=== PATIENT | male | born 1930 | race Caucasian/White ===

== ENCOUNTER → 2016-06-22 | Outpatient (CLI) | payer MEDICARE, BC | LOC: OD 09:11 | PROVIDERS: ATTEND Allergy & Immunology | DX: J32.9 Chronic sinusitis, unspecified (principal) | CPT/HCPCS: 70220 ==

== ENCOUNTER → 2016-10-18 | Outpatient (CLI) | payer MEDICARE, BC ==
--- NOTE | 2016-10-19 09:40 | RADIOLOGY REPORT (SQ) ---
EXAM DESCRIPTION: MRI HEAD COMBO COMPLETED DATE/TIME: 10/18/2016 8:36 pm REASON FOR STUDY: VERTIGO (attn to IAC's) R42 DIZZINESS AND GIDDINESS COMPARISON: None. TECHNIQUE: Multiplanar imaging includes noncontrasted T1, T2, FLAIR, Diffusion with ADC map and post gadolinium contrast T1 sequences. Additional thin sections through the internal auditory canals pre and postcontrast. Images stored on PACS. CONTRAST TYPE AND DOSE: 15 mL Multihance. RENAL FUNCTION: GFR > 60. LIMITATIONS: Patient motion. FINDINGS: ANATOMY: No anomalies. Normal vascular flow voids. Pituitary fossa normal. CSF SPACES: Atrophy-induced prominence of CSF spaces and ventricles. CEREBRUM: High-signal intensity lesions scattered throughout the white matter on FLAIR imaging with d istribution suggesting chronic micro-vascular ischemic change. No evidence of hemorrhage, mass, extra axial fluid collection or acute ischemic change. No enhancing lesions. POSTERIOR FOSSA: No signal alteration. No hemorrhage. No edema, masses, or mass effect. Internal seun tory canals, cerebello-pontine angles, mastoids normal. No enhancing lesions. ORBITS: No masses. Globes normal. PARANASAL SINUSES: No fluid levels. Mucosa normal. DIFFUSION: Normal. No evidence of recent infarct. OTHER: No other significant finding. IMPRESSION: 1. Normal IAC's. 2. No acute abnormality in the brain. TECHNICAL DOCUMENTATION: JOB ID: [id number]- All Rights Reserved
== END ==
LOC: RAD 19:20
PROVIDERS: ATTEND Specialist
DX: R42 Dizziness and giddiness (principal)
CPT/HCPCS: 82565; 70553; A9577

== ENCOUNTER → 2017-01-04 | Outpatient (CLI) | payer MEDICARE, BC ==
--- NOTE | 2017-01-04 10:45 | RADIOLOGY REPORT (SQ) ---
EXAM DESCRIPTION: CT ORBIT/SELLA WITHOUT COMPLETED DATE/TIME: 01/04/2017 7:56 am REASON FOR STUDY: MASTOIDITIS (H70.90) H70.90 UNSPECIFIED MASTOIDITIS, UNSPECIFIED EAR COMPARISON: Paranasal sinus films 06/22/2016 MRI brain 10/18/2016 TECHNIQUE: Noncontrasted thin section axial images through the temporal bones and skull base were ob tained and reviewed at bone windows and bone algorithm with coronal and sagittal reconstructions. All CT scanners at this facility use dose modulation, iterative reconstruction, and/or weight based d osing when appropriate to reduce radiation dose to as low as reasonably achievable (ALARA). [facility]: Dose Right [facility]: CareDose [facility]: Dose Right [facility]: Teradose 4D [facility]: [employer] RADIATION DOSE: Up-to-date CT equipment and radiation dose reduction techniques were employed. CTDIv ol: 60.6 mGy. DLP: 606 mGy-cm. mGy. LIMITATIONS: None. FINDINGS: RIGHT SIDE: EXTERNAL AUDITORY CANAL: Widely patent. TYMPANIC MEMBRANE: No masses, thickening or medial retraction. OSSICLES AND MIDDLE EAR CAVITY: Normal ossicles. No middle ear masses or fluid. INNER EAR STRUCTURES: Normal vestibule and cochlea. Normal aqueducts. INTERNAL AUDITORY CANAL: Normal bony canal without narrowing or widening. No calcified or ossified m asses. TEMPOROMANDIBULAR JOINT: Normal. MASTOID AIR CELLS: Clear. LEFT SIDE: EXTERNAL AUDITORY CANAL: Widely patent. TYMPANIC MEMBRANE: No masses, thickening or medial retraction. OSSICLES AND MIDDLE EAR CAVITY: Normal ossicles. No middle ear masses or fluid. INNER EAR STRUCTURES: Normal vestibule and cochlea. Normal aqueducts. INTERNAL AUDITORY CANAL: Normal bony canal without narrowing or widening. No calcified or ossified m asses. TEMPOROMANDIBULAR JOINT: Normal. MASTOID AIR CELLS: Clear. CENTRAL SKULL BASE: Normal foramina. No lytic or blastic lesions. INFERIOR BRAIN: Limited view. No acute findings. LIMITED VIEW OF PARANASAL SINUSES IN THE FIELD OF VIEW: Normal. Mild leftward nasal septal deviation . IMPRESSION: UNREMARKABLE NONCONTRASTED TEMPORAL BONE CT. TECHNICAL DOCUMENTATION: JOB ID: [id number] Quality ID # [id number]: Final reports with documentation of one or more dose reduction techniques (e.g., Au tomated exposure control, adjustment of the mA and/or kV according to patient size, use of iterative reconstruction technique) 2010 [employer]- All Rights Reserved
== END ==
LOC: RAD 07:26
PROVIDERS: ATTEND Internal Medicine
DX: H70.90 Unspecified mastoiditis, unspecified ear (principal)
CPT/HCPCS: 70480

== ENCOUNTER 2017-02-05 09:18 | Emergency (ER) | payer MEDICARE, BC ==
--- NOTE | 2017-02-05 09:58 | ER Document Report ---
ED Medical Screen (RME) - General Chief Complaint: High Blood Pressure Stated Complaint: ABNORMAL LABS Time Seen by Provider: 02/05/17 09:54 Mode of Arrival: Wheelchair Information source: Patient Notes: 86-year-old male who has had vertigo issues presents with complaints of dizziness as well as left mastoid tenderness Patient has been seen by his PCP with similar complaints Patient notes his blood pressure was elevated when checked this morning I have greeted and performed a rapid initial assessment of this patient. A comprehensive ED assessment and evaluation of the patient, analysis of test results and completion of the medical decision making process will be conducted by additional ED providers. PHYSICAL EXAMINATION: GENERAL: Well-appearing, well-nourished and in no acute distress. HEAD: Atraumatic, normocephalic. EYES: Pupils equal round extraocular movements intact, conjunctiva are normal. ENT: Nares patent, mastoid tenderness on the left NECK: Normal range of motion LUNGS: No respiratory distress Musculoskeletal: Normal range of motion NEUROLOGICAL: Normal speech, normal gait. PSYCH: Normal mood, normal affect. SKIN: Warm, Dry, normal turgor, no rashes or lesions noted. TRAVEL OUTSIDE OF THE [place] IN LAST 30 DAYS: No - Related Data Allergies/Adverse Reactions: No Known Allergies Allergy (Verified 02/05/17 09:27) Past Medical History - Social History Chew tobacco use (# tins/day): No Frequency of alcohol use: None Drug Abuse: None - Past Medical History Cardiac Medical History: Reports: Hx Hypertension Pulmonary Medical History: Reports: Hx Asthma, Hx Pneumonia Renal/ Medical History: Denies: Hx Peritoneal Dialysis Physical Exam - Vital signs Vitals: Temp Pulse Resp BP Pulse Ox 97.6 F 57 L 18 167/83 H 98 02/05/17 09:28 02/05/17 09:28 02/05/17 09:28 02/05/17 09:28 02/05/17 09:28 Course - Vital Signs Vital signs: Temp Pulse Resp BP Pulse Ox 97.6 F 57 L 18 167/83 H 98 02/05/17 09:28 02/05/17 09:28 02/05/17 09:28 02/05/17 09:28 02/05/17 09:28
--- NOTE | 2017-02-05 10:37 | ER Document Report ---
ED Dizziness/Weakness - General Chief Complaint: High Blood Pressure Stated Complaint: ABNORMAL LABS Time Seen by Provider: 02/05/17 09:54 Mode of Arrival: Wheelchair Information source: Patient TRAVEL OUTSIDE OF THE [place] IN LAST 30 DAYS: No - HPI Patient complains to provider of: Dizziness Onset: This morning Onset/Duration: Waxing and waning Quality of pain: Achy Severity: Moderate Pain Level: 2 Associated symptoms: Dizzy, Ear pain Notes: Patient is an 86-year-old male with a history of chronic vertigo for 40 years, and a left ear pain that has been going on for at least the past 6 months, who presents today complaining of elevated blood pressure measuring 165/106 this morning, prior to taking his blood pressure medicine for the morning, he reports slightly worse dizziness than usual and worse left ear pain than usual, states he has been seen by his primary care provider, ENT and neurology and still does not have an official reason for his symptoms and his symptoms continue to be bothersome, he denies any fevers, no cough, cold or congestion, he does have a mild frontal headache, no throat pain, no chest pain or shortness of breath - Related Data Allergies/Adverse Reactions: No Known Allergies Allergy (Verified 02/05/17 09:27) Home Medications: Current Home Medications Aspirin [Aspirin EC] 81 mg PO DAILY 02/05/17 [History] Lisinopril [Prinivil 40 mg Tablet] 40 mg PO DAILY 02/05/17 [History] Metoprolol Tartrate [Lopressor 100 mg Tablet] 100 mg PO Q12 02/05/17 [History] Past Medical History - General Information source: Patient - Social History Smoking Status: Never Smoker Chew tobacco use (# tins/day): No Frequency of alcohol use: None Drug Abuse: None Family History: Reviewed & Not Pertinent - Past Medical History Cardiac Medical History: Reports: Hx Hypertension Pulmonary Medical History: Reports: Hx Asthma, Hx Pneumonia Renal/ Medical History: Denies: Hx Peritoneal Dialysis Review of Systems - Review of Systems Constitutional: No symptoms reported EENT: See HPI Cardiovascular: See HPI Respiratory: No symptoms reported Gastrointestinal: No symptoms reported Genitourinary: No symptoms reported Male Genitourinary: No symptoms reported Musculoskeletal: No symptoms reported Skin: No symptoms reported Hematologic/Lymphatic: No symptoms reported Neurological/Psychological: No symptoms reported -: Yes All other systems reviewed and negative Physical Exam - Vital signs Vitals: Temp Pulse Resp BP Pulse Ox 97.6 F 57 L 18 167/83 H 98 02/05/17 09:28 02/05/17 09:28 02/05/17 09:28 02/05/17 09:28 02/05/17 09:28 Interpretation: Normal - General General appearance: Appears well, Alert - HEENT Head: Normocephalic, Atraumatic Eyes: Normal Conjunctiva: Normal Extraocular movements intact: Yes Eyelashes: Normal Pupils: PERRL Ears: Normal External canal: Normal Tympanic membrane: Normal Sinus: Normal Nasal: Normal Mouth/Lips: Normal Mucous membranes: Normal Pharynx: Normal Neck: Normal - Respiratory Respiratory status: No respiratory distress Chest status: Nontender Breath sounds: Normal Chest palpation: Normal - Cardiovascular Rhythm: Regular Heart sounds: Normal auscultation Murmur: No - Abdominal Inspection: Normal Distension: No distension Bowel sounds: Normal Tenderness: Nontender Organomegaly: No organomegaly - Back Back: Normal, Nontender - Extremities General upper extremity: Normal inspection, Nontender, Normal color, Normal ROM , Normal temperature General lower extremity: Normal inspection, Nontender, Normal color, Normal ROM , Normal temperature, Normal weight bearing. No: Pasquale's sign - Neurological Neuro grossly intact: Yes Cognition: Normal Orientation: AAOx4 Mable Coma Scale Eye Opening: Spontaneous Mable Coma Scale Verbal: Oriented Mable Coma Scale Motor: Obeys Commands Mable Coma Scale Total: 15 Speech: Normal Motor strength normal: LUE, RUE, LLE, RLE Sensory: Normal - Psychological Associated symptoms: Normal affect, Normal mood - Skin Skin Temperature: Warm Skin Moisture: Dry Skin Color: Normal Course - Re-evaluation Re-evalutation: 02/05/17 12:25 Lab and imaging findings were discussed with patient at bedside which are unremarkable, symptoms have been chronic in nature for at least the last 6 months, with vertigo symptoms for the last 40 years, patient will be discharged with a prescription for meclizine and advised to follow-up with his primary care provider or return if symptoms worsen, patient acknowledges understanding and agreement with this plan - Vital Signs Vital signs: Temp Pulse Resp BP Pulse Ox 97.6 F 57 L 19 149/84 H 96 02/05/17 09:28 02/05/17 09:28 02/05/17 12:03 02/05/17 12:03 02/05/17 12:03 - Laboratory Result Diagrams: 02/05/17 10:21 02/05/17 10:21 Laboratory results interpreted by me: 02/05/17 10:21 RDW 14.1 H Plt Count 147 L - Diagnostic Test Radiology reviewed: Image reviewed, Reports reviewed Discharge - Discharge Clinical Impression: Vertigo, Ear pain, left Condition: Stable Disposition: HOME, SELF-CARE Instructions: High Blood Pressure ([facility]), Vertigo ([facility]) Additional Instructions: Follow up with your primary care provider in one to 2 days. Return to the emergency room immediately if symptoms worsen or any additional concerns. Prescriptions: Meclizine HCl [Antivert 25 mg Tablet] 25 mg PO TID #20 tablet
[2017-02-05 10:40] LABS: ABSOLUTE BASOPHILS # (AUTO) 0.1 10^3/uL (0.0-0.2); ABSOLUTE EOSINOPHILS # (AUTO) 0.1 10^3/uL (0.0-0.6); ABSOLUTE LYMPHOCYTES (AUTO) 1.7 10^3/uL (0.5-4.7); ABSOLUTE MONOCYTES (AUTO) 0.6 10^3/uL (0.1-1.4); ABSOLUTE NEUT (AUTO) 4.6 10^3/uL (1.7-8.2); BASOPHILS % (AUTO) 0.9 % (0-2); EOSINOPHILS % (AUTO) 1.9 % (0-6); HEMATOCRIT 45.8 % (37.9-51.0); HEMOGLOBIN 15.9 g/dL (13.5-17.0); HGB HCT DIFFERENCE 1.9; LYMPHOCYTES % (AUTO) 24.1 % (13-45); MEAN CORPUSCULAR HEMOGLOBIN 30.5 pg (27.0-33.4); MEAN CORPUSCULAR HGB CONC 34.7 g/dL (32.0-36.0); MEAN CORPUSCULAR VOLUME 88 fl (80-97); MONOCYTES % (AUTO) 8.9 % (3-13); RED BLOOD COUNT 5.22 10^6/uL (4.35-5.55); RED CELL DISTRIBUTION WIDTH 14.1 % (11.5-14.0); SEGMENTED NEUTROPHILS % (AUTO) 64.2 % (42-78); WHITE BLOOD COUNT 7.2 10^3/uL (4.0-10.5)
[2017-02-05 10:56] LABS: ALANINE AMINOTRANSFERASE 23 U/L (21-72); ALBUMIN 4.2 g/dL (3.5-5.0); ALKALINE PHOSPHATASE 78 U/L (38-126); ANION GAP 12 (5-19); ASPARTATE AMINO TRANSFERASE 21 U/L (17-59); BILIRUBIN,DIRECT 0.4 mg/dL (0.0-0.4); BILIRUBIN,TOTAL 0.9 mg/dL (0.2-1.3); BLOOD UREA NITROGEN 18 mg/dL (7-20); CALCIUM 9.8 mg/dL (8.4-10.2); CARBON DIOXIDE 26 mmol/L (22-30); CHLORIDE 106 mmol/L (98-107); CREATININE RESULT 0.83 mg/dL (0.52-1.25); GLUCOSE 89 mg/dL (75-110); POTASSIUM 4.3 mmol/L (3.6-5.0); TOTAL PROTEIN 7.1 g/dL (6.3-8.2)
--- NOTE | 2017-02-05 12:10 | RADIOLOGY REPORT (SQ) ---
EXAM DESCRIPTION: CT HEAD WITH COMPLETED DATE/TIME: 02/05/2017 11:20 am REASON FOR STUDY: dizziness COMPARISON: CT temporal bones 01/04/2017 MRI brain 10/18/2016 TECHNIQUE: Axial images acquired through the brain with intravenous contrast. Images reviewed with b one, brain and subdural windows. Images stored on PACS. All CT scanners at this facility use dose modulation, iterative reconstruction, and/or weight based d osing when appropriate to reduce radiation dose to as low as reasonably achievable (ALARA). [facility]: Dose Right [facility]: CareDose [facility]: Dose Right [facility]: Teradose 4D [facility]: [employer] CONTRAST TYPE AND DOSE: 50 mL IV Isovue 370 RENAL FUNCTION: Creatinine 0.83 RADIATION DOSE: Up-to-date CT equipment and radiation dose reduction techniques were employed. CTDIv ol: 45.9 - 49.0 mGy. DLP: 2869 mGy-cm.. LIMITATIONS: None. FINDINGS: VENTRICLES: Normal size and contour. CEREBRUM: No masses. No acute hemorrhage. No midline shift. No evidence for acute infarction. No enha ncing lesions. 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 These are unchanged from prior studi es CEREBELLUM: No masses. No hemorrhage. No alteration of density. No evidence for acute infarction. No enhancing lesions. EXTRA-AXIAL SPACES: No fluid collections. No enhancing lesions. ORBITS AND GLOBE: No intra- or extraconal masses. Normal contour of globe without masses. CALVARIUM: No fracture. PARANASAL SINUSES: No fluid or mucosal thickening. SOFT TISSUES: No mass or hematoma. OTHER: There is very heavy atherosclerotic calcification of the right distal intracranial vertebral a rtery, and right parasellar internal carotid artery. IMPRESSION: No acute large territory ischemic change. No acute intracranial hemorrhage. 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 EVIDENCE OF ACUTE STROKE: NO. TECHNICAL DOCUMENTATION: JOB ID: [id number] Quality ID # [id number]: Final reports with documentation of one or more dose reduction techniques (e.g., Au tomated exposure control, adjustment of the mA and/or kV according to patient size, use of iterative reconstruction technique) 2010 [email or web address]- All Rights Reserved
--- NOTE | 2017-02-05 12:14 | RADIOLOGY REPORT (SQ) ---
EXAM DESCRIPTION: CT FACIAL AREA WITH COMPLETED DATE/TIME: 02/05/2017 11:20 am REASON FOR STUDY: left mastoid tenderness COMPARISON: CT brain same date without and with contrast CT temporal bones 01/04/2017 MRI brain 10/18/2016 TECHNIQUE: Post contrast images through the facial bones and orbits windowed for bone and soft tissu e. Additional coronal and sagittal reconstructed images reviewed. All images stored on PACS. All CT scanners at this facility use dose modulation, iterative reconstruction, and/or weight based d osing when appropriate to reduce radiation dose to as low as reasonably achievable (ALARA). [facility]: Dose Right [facility]: CareDose [facility]: Dose Right [facility]: Teradose 4D [facility]: [employer] CONTRAST TYPE AND DOSE: contrast/concentration: Isovue 370.00 mg/ml; Total Contrast Delivered: 50.0 ml; Total Saline Delivered: 55.0 ml RENAL FUNCTION: Creatinine 0.83 RADIATION DOSE: 49 mGy . LIMITATIONS: None. FINDINGS: FACIAL BONES: No fracture or bone lesion. ORBITS: Intact. No fracture. Symmetric intact globes and retroorbital soft tissues. PARANASAL SINUSES: Clear. No significant mucosal thickening, mass or fluid. No nasal polyps. Maxilla ry sinus outlets are patent. Mild leftward nasal septal deviation and bony spurring. SOFT TISSUES: No mass or edema. No abnormal enhancement. INFERIOR BRAIN: Moderate bifrontal chronic white matter disease. Heavy atherosclerotic calcification of the distal right intracranial vertebral artery with at least 50% diameter narrowing. Heavy ather osclerotic calcification right parasellar ICA with at least 50% diameter narrowing. OTHER: Carotid bifurcations are visualized at the bottom edge of the field of view. No flow signific ant stenosis of the right or left proximal internal carotid artery. IMPRESSION: No acute findings. TECHNICAL DOCUMENTATION: JOB ID: [id number] Quality ID # [id number]: Final reports with documentation of one or more dose reduction techniques (e.g., Au tomated exposure control, adjustment of the mA and/or kV according to patient size, use of iterative reconstruction technique) 2010 [employer]- All Rights Reserved
[2017-02-05] MEDS ORDERED: MECLIZINE HCL 25 MG TABLET PO ONE (12:28)
[2017-02-05 13:11] VITALS: BP 160/131
--- NOTE | 2017-02-05 21:02 | EKG REPORT ---
SEVERITY:- ABNORMAL ECG - SINUS RHYTHM MULTIPLE ATRIAL PREMATURE COMPLEXES BORDERLINE LEFT AXIS DEVIATION : Confirmed by: Anna Mehta MD 05-Feb-2017 21:01:49
== END 2017-02-05 13:11 | disposition home or self-care (01) ==
LOC: ER 09:18
DX: R42 Dizziness and giddiness (principal); H92.02 Otalgia, left ear; R03.0 Elevated blood-pressure reading, without diagnosis of hypertension; Z79.899 Other long term (current) drug therapy
CPT/HCPCS: 93005; 99284; 36415; 85025; 80053; 70460; 70487; 93010; A9270

== ENCOUNTER → 2017-07-31 | Outpatient (CLI) | payer MEDICARE, BC ==
--- NOTE | 2017-07-31 17:02 | RADIOLOGY REPORT (SQ) ---
EXAM DESCRIPTION: VENOUS BILATERAL LOWER COMPLETED DATE/TIME: 07/31/2017 4:52 pm REASON FOR STUDY: BLE PAIN, SWELLING M79.89 OTHER SPECIFIED SOFT TISSUE DISORDERS COMPARISON: None. TECHNIQUE: Dynamic and static michaud scale and color images acquired of both lower extremity venous sy stems. Selected spectral images acquired with additional compression and augmentation maneuvers. Imag es stored on PACS. LIMITATIONS: None. FINDINGS: RIGHT LEG COMMON FEMORAL AND FEMORAL: Normal phasicity, compression and augmentation. No visualized echogenic m aterial on michaud scale. No defects on color images. POPLITEAL: Normal compression and augmentation. No visualized echogenic material on michaud scale. No de fects on color images. CALF VESSELS: Normal compression and augmentation. No visualized echogenic material on michaud scale. No defects on color image. GSV AND SSV: Normal compression. No visualized echogenic material on michaud scale. No defects on color images. ANY DEEP VENOUS INSUFFICIENCY: Not evaluated. ANY EVIDENCE OF POPLITEAL CYST: No. OTHER: No other significant finding. LEFT LEG COMMON FEMORAL AND FEMORAL: Normal phasicity, compression and augmentation. No visualized echogenic m aterial on michaud scale. No defects on color images. POPLITEAL: Normal compression and augmentation. No visualized echogenic material on michaud scale. No de fects on color images. CALF VESSELS: Normal compression and augmentation. No visualized echogenic material on michaud scale. No defects on color images. GSV AND SSV: Normal compression. No visualized echogenic material on michaud scale. No defects on color images. ANY DEEP VENOUS INSUFFICIENCY: Not evaluated. ANY EVIDENCE POPLITEAL CYST: No. OTHER: No other significant finding. IMPRESSION: NO EVIDENCE DVT OR SVT IN EITHER LEG. TECHNICAL DOCUMENTATION: JOB ID: [id number]- All Rights Reserved Reading location - IP/workstation name: [email or web address]
== END ==
LOC: SP 15:43
PROVIDERS: ATTEND Internal Medicine
DX: M79.661 Pain in right lower leg (principal); M79.662 Pain in left lower leg; M79.89 Other specified soft tissue disorders
CPT/HCPCS: 93970

== ENCOUNTER → 2018-02-12 | Outpatient (CLI) | payer MEDICARE, BC ==
[2018-02-12 08:43] LABS: ABSOLUTE BASOPHILS # (AUTO) 0.1 10^3/uL (0.0-0.2); ABSOLUTE EOSINOPHILS # (AUTO) 0.2 10^3/uL (0.0-0.6); ABSOLUTE LYMPHOCYTES (AUTO) 2.6 10^3/uL (0.5-4.7); ABSOLUTE MONOCYTES (AUTO) 0.7 10^3/uL (0.1-1.4); ABSOLUTE NEUT (AUTO) 4.5 10^3/uL (1.7-8.2); BASOPHILS % (AUTO) 0.9 % (0-2); EOSINOPHILS % (AUTO) 2.3 % (0-6); HEMATOCRIT 44.6 % (37.9-51.0); HEMOGLOBIN 15.3 g/dL (13.5-17.0); LYMPHOCYTES % (AUTO) 31.9 % (13-45); MEAN CORPUSCULAR HEMOGLOBIN 30.5 pg (27.0-33.4); MEAN CORPUSCULAR HGB CONC 34.4 g/dL (32.0-36.0); MEAN CORPUSCULAR VOLUME 89 fl (80-97); MONOCYTES % (AUTO) 8.6 % (3-13); PLATELET COUNT 159 10^3/uL (150-450); RED BLOOD COUNT 5.03 10^6/uL (4.35-5.55); RED CELL DISTRIBUTION WIDTH 13.7 % (11.5-14.0); SEGMENTED NEUTROPHILS % (AUTO) 56.3 % (42-78); TOTAL CELLS COUNTED % (AUTO) 100 %; WHITE BLOOD COUNT 8.1 10^3/uL (4.0-10.5)
[2018-02-12 09:09] LABS: ALANINE AMINOTRANSFERASE 21 U/L (21-72); ALKALINE PHOSPHATASE 80 U/L (38-126); ANION GAP 6 (5-19); ASPARTATE AMINO TRANSFERASE 20 U/L (17-59); BILIRUBIN,DIRECT 0.4 mg/dL (0.0-0.4); BLOOD UREA NITROGEN 24 mg/dL (7-20); C-REACTIVE PROTEIN 6.2 mg/L (<10.0); CALCIUM 9.8 mg/dL (8.4-10.2); CARBON DIOXIDE 30 mmol/L (22-30); CHLORIDE 105 mmol/L (98-107); CHOLESTEROL 194.48 mg/dL (0-200); GLUCOSE 97 mg/dL (75-110); POTASSIUM 4.3 mmol/L (3.6-5.0); SODIUM 140.5 mmol/L (137-145); TRIGLYCERIDES 165 mg/dL (<150)
[2018-02-12 09:18] LABS: DIRECT LDL 134 mg/dL (<100)
[2018-02-12 09:22] LABS: ERYTHROCYTE SEDIMENTATION RATE 14 mm/hr (0-20)
== END ==
LOC: OD 07:57
PROVIDERS: ATTEND Internal Medicine
DX: E78.5 Hyperlipidemia, unspecified (principal); R53.83 Other fatigue; I10 Essential (primary) hypertension; R51 Headache; M19.91 Primary osteoarthritis, unspecified site
CPT/HCPCS: 36415; 80053; 80061; 84443; 85025; 85652; 86140

== ENCOUNTER 2019-02-19 01:18 | Emergency (ER) | payer MEDICARE, BC ==
[2019-02-19 02:09] LABS: ALBUMIN 2.9 g/dL (3.5-5.0); ALKALINE PHOSPHATASE 80 U/L (38-126); ANION GAP 10 (5-19); ASPARTATE AMINO TRANSFERASE 25 U/L (17-59); BILIRUBIN,DIRECT 0.2 mg/dL (0.0-0.4); BILIRUBIN,TOTAL 0.6 mg/dL (0.2-1.3); BLOOD UREA NITROGEN 24 mg/dL (7-20); CALCIUM 8.2 mg/dL (8.4-10.2); CARBON DIOXIDE 23 mmol/L (22-30); CHLORIDE 107 mmol/L (98-107); GLUCOSE 272 mg/dL (75-110); TOTAL PROTEIN 5.3 g/dL (6.3-8.2)
--- NOTE | 2019-02-19 02:14 | ER Document Report ---
ED Dizziness/Weakness - General Chief Complaint: Altered Mental Status Stated Complaint: ALTERED MENTAL STATUS Time Seen by Provider: 02/19/19 02:12 Primary Care Provider: SIS BRUMFIELD MD [Primary Care Provider] - Follow up as needed Mode of Arrival: Stretcher Information source: Patient, Relative, Emergency Med Personnel Notes: HISTORY OF PRESENT ILLNESS: Patient is an 88-year-old male with a past medical history of hypertension who presents with sudden onset abdominal pain prior to arrival. Family reports the patient got up to use the bathroom, felt immediate pain in the left lower and mid abdomen, had one episode of emesis. They deny known injuries or recent falls. Given patient's history of dementia, information is limited other than what is provided by EMS and family at bedside. Location: Lower abdomen Onset: Sudden prior to arrival Alleviation: None Provocation: Movement Quality: Aching, cramping Radiation: None Severity: Severe Timing: Instant History of abdominal surgery: None Associated symptoms: Denies chest pain or shortness of breath, no fevers or chills had one episode of nonbloody and nonbilious emesis but no diarrhea or con stipation Last bowel movement: Prior to arrival and normal REVIEW OF SYSTEMS: CONSTITUTIONAL : Denies fever or chills, no sweats. Denies recent illness. EENT: Denies eye, ear, throat, or mouth pain or symptoms. Denies nasal or sinus congestion. CARDIOVASCULAR: Denies chest pain. Denies swelling of the legs. RESPIRATORY: Denies cough, cold, or chest congestion. Denies shortness of breath or difficulty breathing. Denies wheezing. GASTROINTESTINAL: Positive for abdominal pain. Positive for vomiting but no diarrhea. Denies constipation. GENITOURINARY: Denies difficulty urinating, painful urination, burning, frequency, or blood in urine. FEMALE GENITOURINARY: Denies vaginal bleeding, abnormal or irregular periods. MUSCULOSKELETAL: Denies neck or back pain or joint pain or swelling. SKIN: Denies rash or skin lesions. HEMATOLOGIC : Denies easy bruising or bleeding. LYMPHATIC: Denies swollen, enlarged glands. NEUROLOGICAL: Denies altered mental status or loss of consciousness. Denies headache. Denies weakness or paralysis or loss of use of either side. Denies problems with gait or speech. Denies sensory or motor loss. PSYCHIATRIC: Denies anxiety or stress or depression. All other systems reviewed and negative. PHYSICAL EXAMINATION: GENERAL: Uncomfortable-appearing, well-nourished and in moderate acute distress. HEAD: Atraumatic, normocephalic. No scalp deformity, depression, or crepitance. EYES: Pupils are 2mm and equal/round/reactive to light, extraocular movements intact, sclera anicteric, conjunctiva are normal. ENT: Nares patent bilaterally, oropharynx. Moist mucous membranes. No tonsil hypertrophy. NECK: Normal range of motion, supple without lymphadenopathy. LUNGS: Breath sounds present, equal, and clear to auscultation bilaterally. No wheezes, rales, or rhonchi. HEART: Regular rate and rhythm without murmurs, rubs, or gallops. 2+ peripheral pulses. Normal capillary refill. ABDOMEN: Soft, moderate diffuse mid and lower abdominal tenderness, nondistended. Normoactive bowel sounds. No guarding, no rebound. No masses appreciated. BACK: Normal contour, no midline tenderness. Rectal exam deferred. GENITAL/PELVIC: Deferred. EXTREMITIES: Normal range of motion, no pitting or edema. No cyanosis. NEUROLOGICAL: No focal neurological deficits. Moves all extremities spontaneously and on command. PSYCH: Normal mood, normal affect. No suicidal thoughts/ideations. No homicidal thoughts/ideations. No hallucinations. SKIN: Warm, dry, normal turgor, no rashes or lesions noted. ASSESSMENT AND PLAN: This patient is a 88-year-old male who presents with sudden onset lower abdominal pain, concerning for mesenteric ischemia versus aortic aneurysm versus colitis versus constipation versus diverticulitis. 1. Will obtain labs, urine, lactic acid, blood cultures, stat CT scan of the abdomen/pelvis, and reassess. 2. Will give IV fluids with morphine for pain control and empiric antibiotics. TRAVEL OUTSIDE OF THE [place] IN LAST 30 DAYS: No - HPI Patient complains to provider of: Altered mental status, Weakness, Other - Abdominal pain Onset: Just prior to arrival Onset/Duration: Sudden Quality of pain: Achy, Fullness, Throbbing Severity: Severe Pain Level: 5 Associated symptoms: Nausea Baseline gait: Uses a walker - Related Data Allergies/Adverse Reactions: No Known Allergies Allergy (Verified 02/05/17 09:27) Past Medical History - General Information source: Patient, Relative - Social History Smoking Status: Never Smoker Chew tobacco use (# tins/day): No Frequency of alcohol use: None Drug Abuse: None Lives with: Family Family History: Reviewed & Not Pertinent Patient has suicidal ideation: No Patient has homicidal ideation: No - Past Medical History Cardiac Medical History: Reports: Hx Hypertension Pulmonary Medical History: Reports: Hx Asthma, Hx Pneumonia EENT Medical History: Reports: None Neurological Medical History: Reports: None Endocrine Medical History: Reports: None Renal/ Medical History: Reports: None. Denies: Hx Peritoneal Dialysis Malignancy Medical History: Reports None GI Medical History: Reports: None Musculoskeletal Medical History: Reports None Skin Medical History: Reports None Psychiatric Medical History: Reports: None Traumatic Medical History: Reports: None Infectious Medical History: Reports: None Surgical Hx: Negative Past Surgical History: Reports: None - Immunizations Immunizations up to date: Yes Hx Diphtheria, Pertussis, Tetanus Vaccination: Yes Review of Systems - Review of Systems Constitutional: No symptoms reported EENT: No symptoms reported Cardiovascular: No symptoms reported Respiratory: No symptoms reported Gastrointestinal: See HPI, Abdominal pain Genitourinary: No symptoms reported Male Genitourinary: No symptoms reported Musculoskeletal: No symptoms reported Skin: No symptoms reported Hematologic/Lymphatic: No symptoms reported Neurological/Psychological: See HPI, Confusion -: Yes All other systems reviewed and negative Physical Exam - Vital signs Vitals: Resp Pulse Ox 12 95 02/19/19 01:23 02/19/19 01:23 Interpretation: Normal Course - Re-evaluation Re-evalutation: 02/19/19 05:26 CT scan reveals a large 10.2 cm infrarenal abdominal aortic aneurysm with active extravasation. Patient was given IV TXA 1000 mg, will also give emergency release packed red blood cells/FFP/platelets. Patient has been accepted by vascular surgery to [facility] in [place]. 02/19/19 06:20 Massive transfusion protocol has been activated. - Vital Signs Vital signs: Temp Pulse Resp BP Pulse Ox 97.8 F 101 H 27 H 83/50 L 92 02/19/19 05:23 02/19/19 05:23 02/19/19 06:16 02/19/19 06:16 02/19/19 06:11 - Laboratory Result Diagrams: 02/19/19 02:36 02/19/19 01:28 Laboratory results interpreted by me: 02/19/19 02/19/19 02/19/19 01:25 01:28 01:28 WBC RBC Hgb Hct Abs Neuts (Manual) Abs Lymphs (Manual) Potassium 3.0 L* BUN 24 H Glucose 272 H POC Glucose 311 H Lactic Acid 6.1 H Calcium 8.2 L Total Protein 5.3 L Albumin 2.9 L Urine Protein Urine Glucose (UA) Urine Blood Ur Leukocyte Esterase Crossmatch 02/19/19 02/19/19 02/19/19 02:36 04:20 05:40 WBC 23.1 H RBC 4.18 L Hgb 12.3 L Hct 37.2 L Abs Neuts (Manual) 14.3 H Abs Lymphs (Manual) 7.2 H Potassium BUN Glucose POC Glucose Lactic Acid Calcium Total Protein Albumin Urine Protein 30 H Urine Glucose (UA) 150 H Urine Blood SMALL H Ur Leukocyte Esterase TRACE H Crossmatch See Detail - Diagnostic Test Radiology reviewed: Image reviewed, Reports reviewed - EKG Interpretation by Me EKG shows normal: Sinus rhythm Rate: Normal Rhythm: NSR [place]/QRS: No: Right axis deviation, Left axis deviation, RBBB, LBBB, IVCD, LAHB/LAFB, LPHB/LPFB, Bifasicular block Voltage: No: Increased voltage, Consistant with LVH, Decreased voltage, Throughout, Limb leads P Waves: No: AMY, LAE, Absent, AV Dissociation, Other Heart block present: No: 1st Degree, Mobitz 1, Mobitz 2, CHB (3rd degree block) When compared to previous EKG there are: No significant change - Consults Dr. Arenas ([facility]) Time consulted: 05:20 - will accept in transfer, allow for permissive hypotension with SBP 90-100 Critical Care Note - Critical Care Note Total time excluding time spent on procedures (mins): 120 Comments: Critical care time spent obtaining history from patient or surrogate, discussions with consultants, development of treatment plan with patient or surrogate, evaluation of patient's response to treatment, examination of patient, ordering and performing treatments and interventions, ordering and review of laboratory studies, re-evaluation of patient's condition, ordering and review of radiographic studies and review of old charts. This also includes consultation with vascular surgery, independently interpreting the CT scan prior to radiolog, and given emergency release blood products. Discharge - Discharge Clinical Impression: Aneurysm of infrarenal abdominal aorta Abdominal pain Qualifiers: Abdominal location: generalized Qualified Code(s): R10.84 - Generalized abdominal pain Condition: Critical Disposition: [facility] Referrals: SIS BRUMFIELD MD [Primary Care Provider] - Follow up as needed
[2019-02-19] MEDS ORDERED: RINGERS SOLUTION,LACTATED 1,000 ML IV ONE (02:23)
[2019-02-19] MEDS ORDERED: PIPERACILLIN/TAZOBACTAM 4.5 GM VIAL IV ONE (02:23)
[2019-02-19] MEDS ORDERED: MORPHINE SULFATE 10 MG/ML INJ IV ONE ×3 (02:24→06:13)
[2019-02-19 02:46] LABS: HEMATOCRIT 37.2 % (37.9-51.0); HEMOGLOBIN 12.3 g/dL (13.5-17.0); MEAN CORPUSCULAR HEMOGLOBIN 29.4 pg (27.0-33.4); MEAN CORPUSCULAR HGB CONC 33.1 g/dL (32.0-36.0); MEAN CORPUSCULAR VOLUME 89 fl (80-97); PLATELET COUNT 209 10^3/uL (150-450); RED BLOOD COUNT 4.18 10^6/uL (4.35-5.55); WHITE BLOOD COUNT 23.1 10^3/uL (4.0-10.5)
[2019-02-19 03:00] LABS: ABSOLUTE LYMPHOCYTES# (MANUAL) 7.2 10^3/uL (0.5-4.7); ABSOLUTE MONOCYTES # (MANUAL) 1.2 10^3/uL (0.1-1.4); BASOPHILS % (MANUAL) 1 % (0-2); EOSINOPHILS % (MANUAL) 1 % (0-6); LYMPHOCYTES % (MANUAL) 29 % (13-45); MONOCYTES % (MANUAL) 5 % (3-13); SEGMENTED NEUTROPHILS % (MAN) 62 % (42-78); TOTAL CELLS COUNTED 100
[2019-02-19 03:01] LABS: ANISOCYTOSIS SLIGHT; OVALOCYTES SLIGHT; PLATELET COMMENT ADEQUATE
[2019-02-19] MEDS ORDERED: ONDANSETRON HCL INJ/PF 4 MG/2 ML SDV IV ONE (04:44)
[2019-02-19] MEDS ORDERED: NORMAL SALINE 1000 ML 1,000 ML IV ONE ×2 (04:54→05:03)
--- NOTE | 2019-02-19 05:01 | RADIOLOGY REPORT (SQ) ---
CT abdomen and pelvis with contrast on 02/19/2019 at 4:27 AM CLINICAL INDICATION: Acute left lower quadrant pain, vomiting, altered mental status TECHNIQUE: Multiple axial images are obtained throughout the abdomen and pelvis following the administration of IV contrast. This exam was performed according to our departmental dose-optimization program, which includes automated exposure control, adjustment of the mA and/or kV according to patient size and/or use of iterative reconstruction technique. Total DLP is 2201.78 mGy*cm. COMPARISON: None FINDINGS: Abdomen: There is minimal basilar atelectasis. There is trace pericardial effusion. There is large irregular 10.2 cm infrarenal abdominal aortic aneurysm. There is adjacent fluid and stranding in the retroperitoneum consistent with a ruptured aneurysm. On the delayed imaging that was performed there is high density contrast noted extending from the aneurysm consistent with active bleeding from this ruptured abdominal aortic aneurysm. Aneurysm is likely leaking from the left side of the abdominal aorta. Recommend emergent vascular surgery consultation. Bilateral renal cysts are noted. The patient is status post cholecystectomy. Solid abdominal organs are otherwise unremarkable. There is no free air in the abdomen. The abdominal portion of the GI tract is unremarkable. Pelvis: Right-sided hydrocele is partially imaged. There are small bilateral inguinal hernias containing only fat. Prostate is mildly enlarged. There is a small amount of free fluid in the pelvis. There is no pelvic adenopathy. There is diverticulosis. Pelvic portion of the GI tract including the appendix is otherwise unremarkable. Degenerative changes are noted in the spine. There is grade 1 spondylolisthesis at L4-5 secondary to degenerative facet disease. IMPRESSION: 1. Ruptured large 10.2 cm abdominal aortic aneurysm with active bleeding on this examination. Recommend emergent vascular surgery consultation. 2. Diverticulosis. 3. Mild prostate enlargement.
[2019-02-19 05:03] LABS: APPEARANCE,URINE SLIGHTLY-CLOUDY; BILIRUBIN,URINE NEGATIVE (NEGATIVE); COLOR,URINE YELLOW; GLUCOSE, URINE 150 mg/dL (NEGATIVE); KETONES,URINE NEGATIVE (NEGATIVE); LEUKOCYTE ESTERASE,URINE TRACE (NEGATIVE); NITRITE,URINE NEGATIVE (NEGATIVE); PROTEIN,URINE 30 mg/dL (NEGATIVE); URINE SPECIFIC GRAVITY 1.017; UROBILINOGEN,URINE NEGATIVE mg/dL (<2.0)
[2019-02-19] MEDS ORDERED: TRANEXAMIC ACID INJ/PF 1,000 MG/10 ML SDV IV ONE (05:03)
[2019-02-19] MEDS ORDERED: TRANEXAMIC ACID INJ/PF 1,000 MG/10 ML SDV ONE (05:04)
[2019-02-19] MEDS ORDERED: NORMAL SALINE 250 ML IV PRN ×2 (05:06)
[2019-02-19] MEDS ORDERED: LABETALOL HCL INJ 20 MG/4 ML DISP.SYRIN IV ONE ×2 (05:24→05:59)
[2019-02-19] MEDS ORDERED: MORPHINE SULFATE 10 MG/ML INJ ONE (06:06)
[2019-02-19] MEDS ORDERED: LORAZEPAM INJ 2 MG/1 ML VIAL IV ONE ×2 (06:22→06:39)
[2019-02-19] MEDS ORDERED: LORAZEPAM INJ 2 MG/1 ML VIAL ONE (06:23)
[2019-02-19 06:34] VITALS: BP 83/50
--- NOTE | 2019-02-19 07:54 | EKG REPORT ---
SEVERITY:- ABNORMAL ECG - SINUS RHYTHM NONSPECIFIC ST DEPRESSION, ANTERIOR LEADS BORDERLINE ST ELEVATION, INFERIOR LEADS, CLINICAL CORRELATION NEEDED BORDERLINE PROLONGED QT INTERVAL : Confirmed by: Dayton Church MD 19-Feb-2019 07:54:28
== END 2019-02-19 06:30 | disposition short-term general hospital (02) ==
LOC: ER 01:18
DX: R41.82 Altered mental status, unspecified (principal); I71.4 Abdominal aortic aneurysm, without rupture; R10.84 Generalized abdominal pain; R10.2 Pelvic and perineal pain; I10 Essential (primary) hypertension
CPT/HCPCS: 86900; 86901; 36415; 87040; 36430; 86850; 82962; 83605; 83690; 85025; 80053; 81001; 84484; 86920; 74177; 93005; 93010; P9016; J3490 ×2; J2270; J2060; J2405; J7030; J7120; J2543; 96361; 96365; 96375; 96376; 99291; 99292; P9017